=== PATIENT | female | born 1965 ===

== ENCOUNTER 2024-09-24 23:20 | Emergency (ER) | payer OTHER ==
[2024-09-24] MEDS ORDERED: FENTANYL CITR 100 MCG/2 ML ONE (23:34)
--- NOTE | 2024-09-25 00:48 | EDPHYS ---
Physician Documentation [facility] Name: Cintia Lugo Age: 59 yrs Sex: Female : 1965 Arrival Date: 09/24/2024 Time: 23:20 Bed 17 Private MD: ED Physician Ian Ramirez HPI: 09/24 23:30 This 59 yrs old Unknown Female presents to ER via EMS with complaints of Ankle Injury. cp 23:30 The patient presents with an injury, pain, that is acute. The complaints affect the cp left ankle. Onset: The symptoms/episode began/occurred just prior to arrival. 23:30 Context: resulted from misstep while walking on porch, The patient is unable to bear cp weight. The patient is not able to ambulate. 23:30 Associated signs and symptoms: The patient has no apparent associated signs or symptoms.cp Historical: - Allergies: 23:30 Codeine; jb4 - PMHx: 23:30 COLONITIS; Diverticulitis; Hypertension; jb4 - PSHx: 23:30 Cholecystectomy; Hysterectomy; jb4 - Immunization history:: Adult Immunizations up to date. - Infectious Disease History:: Denies. - Social history:: Smoking status: Patient denies any tobacco usage or history of. ROS: 23:35 MS/extremity: Positive for decreased range of motion, deformity, pain, tenderness, of cp the left ankle, Negative for paresthesias, 23:35 Constitutional: Negative for body aches, chills, fever, cp 23:35 Neck: Negative for pain with movement, pain at rest, 23:35 Back: Negative for 23:35 All other systems are negative, Exam: 23:40 Constitutional: The patient appears in no acute distress, alert, awake, well developed, cp well nourished, obese, uncomfortable, 23:40 Head/Face: Normocephalic, atraumatic. cp 23:40 Eyes: Periorbital structures: appear normal, Conjunctiva: normal, no exudate, no injection, Sclera: no appreciated abnormality, Lids and lashes: appear normal, bilaterally, 23:40 ENT: External ear(s): are unremarkable, Nose: is normal, Mouth: Lips: moist, Oral mucosa: moist, Posterior pharynx: Airway: no evidence of obstruction, patent, 23:40 Neck: ROM/movement: is normal, is supple, without pain, no range of motions limitations, 23:40 Chest/axilla: Inspection: normal, 23:40 Cardiovascular: Rate: normal, 23:40 Respiratory: the patient does not display signs of respiratory distress, Respirations: normal, no use of accessory muscles, no retractions, labored breathing, is not present, 23:40 Abdomen/GI: Inspection: abdomen appears normal, 23:40 Back: pain, is absent, 23:40 Musculoskeletal/extremity: Extremities: noted in the left ankle: pain, tenderness lateral side left ankle, ROM: limited passive range of motion due to pain, in the left ankle, Pulses: noted to be 2+ in the left dorsalis pedis artery, the left foot Sensation intact. Vital Signs: 23:28 BP 162 / 78; Pulse 94; Resp 16; Temp 98.7(O); Pulse Ox 97% on R/A; Weight 112.49 kg jb4 (R); Height 5 ft. 8 in. ; Pain 6/10; 09/25 01:00 BP 123 / 53; Pulse 86; Resp 16; Pulse Ox 96% on R/A; jb4 09/24 23:28 Body Mass Index 37.71 (112.49 kg, 172.72 cm) jb4 09/24 23:28 Pain Scale: Adult jb4 MDM: 09/24 23:31 Medical Screening Exam initiated cp 09/25 00:48 Data reviewed: vital signs, nurses notes, radiologic studies, plain films, and as a cp result, I will discharge patient. 00:48 Differential diagnosis: fracture, sprain, dislocation. I considered the following cp discharge prescriptions or medication management in the emergency department Medications were administered in the Emergency Department. See MAR. Independent interpretation of the following test(s) in the Emergency Department X-Ray: My interpretation is images of left ankle show distal fibula fracture. Care significantly affected by the following chronic conditions: Hypertension, Obesity. Counseling: I had a detailed discussion with the patient and/or guardian regarding the historical points, exam findings, and any diagnostic results supporting the discharge/admit diagnosis, radiology results, the need for outpatient follow up, for definitive care, a orthopedic surgeon, to return to the emergency department if symptoms worsen or persist or if there are any questions or concerns that arise at home. Response to treatment: the patient's symptoms have mildly improved after treatment, and as a result, I will discharge patient. 09/24 23:27 Order name: XRAY Ankle LEFT 3 view cp 09/25 00:13 Order name: Splint Leg: Short Leg: posterior with stirrup; Complete Time: :29 cp 09/25 00:13 Order name: Crutches; Complete Time: : cp Administered Medications: 09/24 23:27 CANCELLED (Physician Discretion): fentanyl (pf)25 mcg IM once cp 23:45 Not Given (Duplicate Order): fentanyl (pf)50 mcg IM once jb4 23:46 Drug: fentaNYL (PF) IVP 50 mcg IVP once Route: IVP; Site: right antecubital; jb4 09/25 00:15 Follow up: Response: No adverse reaction; Marked relief of symptoms; Pain is decreased jb4 Disposition: 22:03 Co-signature as Attending Physician, Ian Ramirez MD I agree with the assessment sp4 and plan of care. I reviewed the patient's care provided by the Advanced Practice Provider and agree with the diagnosis and treatment plan. Disposition Summary: 09/25/24 00:48 Discharge Ordered Notes: Location: Home cp Problem: new cp Symptoms: have improved cp Condition: Stable cp Diagnosis - Nondisplaced comminuted fracture of shaft of left fibula, initial encounter for cp closed fracture Followup: cp - With: Ferny Parks MD - When: 2 - 3 days - Reason: Recheck today's complaints Discharge Instructions: - Discharge Summary Sheet cp - Displaced Fibular Ankle Fracture Treated With ORIF cp - Nondisplaced Fibular Ankle Fracture Treated With Immobilization cp Forms: - Medication Reconciliation Form cp - Antibiotic Education cp - Prescription Opioid Use cp - Patient Portal Instructions cp - Leadership Thank You Letter cp Prescriptions: - Ibuprofen 800 mg Oral Tablet - take 1 tablet ORAL route every 8 hours As needed take with food; 30 tablet; cp Refills: 0, Product Selection Permitted - Tramadol 50 mg Oral Tablet - take 1 tablet ORAL route every 8 hours as needed; 12 tablet; Refills: 0, cp Product Selection Permitted Signatures: Dispatcher [employer] EDMS Christiano Molina PA PA cp Bertin Mccann RN RN jb4 Potepalov, Sergey, MD MD sp4 Corrections: (The following items were deleted from the chart) 09/24 23: 23: fentaNYL (PF) IM 25 mcg IM once ordered. cp cp
--- NOTE | 2024-09-25 00:48 | ER ---
Nurse's Notes [facility] [place], [place] Name: Cintia Lugo Age: 59 yrs Sex: Female : 1965 Arrival Date: 09/24/2024 Time: 23:20 Bed 17 Private MD: Diagnosis: Nondisplaced comminuted fracture of shaft of left fibula, initial encounter for closed fracture Presentation: 09/24 23:28 Chief complaint: EMS states: Pt twisted her ankle on the back porch. Denies LOC. jb4 Coronavirus screen: At this time, the client does not indicate any symptoms associated with coronavirus-19. Ebola Screen: No symptoms or risks identified at this time. Initial Sepsis Screen: Does the patient meet any 2 criteria? HR > 90 bpm. Yes Does the patient have a suspected source of infection? No. Patient's initial sepsis screen is negative. Risk Assessment: Do you want to hurt yourself or someone else?. Onset of symptoms was September 24, 2024. Transition of care: patient was not received from another setting of care. 23:28 Method Of Arrival: EMS: [facility] jb4 23:28 Acuity: TELLY 4 jb4 Historical: - Allergies: 23:30 Codeine; jb4 - PMHx: 23:30 COLONITIS; Diverticulitis; Hypertension; jb4 - PSHx: 23:30 Cholecystectomy; Hysterectomy; jb4 - Immunization history:: Adult Immunizations up to date. - Infectious Disease History:: Denies. - Social history:: Smoking status: Patient denies any tobacco usage or history of. Screenin:30 [facility] ED Fall Risk Assessment (Adult) History of falling in the last 3 months, jb4 including since admission Yes- single mechanical fall (1 pt) Confusion or Disorientation No (0 pts) Intoxicated or Sedated No (0 pts) Impaired Gait No (0 pts) Mobility Assist Device Used No (0 pt) Altered Elimination No (0 pt) Score/Fall Risk Level 0 - 2 = Low Risk Oriented to surroundings, Maintained a safe environment. Abuse screen: Denies threats or abuse. Nutritional screening: No deficits noted. Tuberculosis screening: No symptoms or risk factors identified. Assessment: 23:30 General: Appears in no apparent distress. uncomfortable, Behavior is calm, cooperative, jb4 appropriate for age. Pain: Complains of pain in left foot Pain does not radiate. Pain currently is 10 out of 10 on a pain scale. Neuro: Level of Consciousness is awake, alert, obeys commands, Oriented to person, place, time, situation. Cardiovascular: Patient's skin is warm and dry. Pulses are 3+ in left dorsalis pedis artery. Respiratory: Airway is patent Respiratory effort is even, unlabored, Respiratory pattern is regular, symmetrical. Derm: Skin is intact, Skin is pink, warm \T\ dry. Musculoskeletal: Circulation, motion, and sensation intact. Range of motion: limited in left ankle. 09/25 01:30 Reassessment: Patient appears in no apparent distress at this time. Patient and/or jb4 family updated on plan of care and expected duration. Pain level reassessed. Patient is alert, oriented x 3, equal unlabored respirations, skin warm/dry/pink. Splint placed on pt's left lower extremity. Checked by ER provider. Provider Okayed splint and pt discharge. 02:00 Reassessment: Patient appears in no apparent distress at this time. Patient and/or jb4 family updated on plan of care and expected duration. Pain level reassessed. Patient is alert, oriented x 3, equal unlabored respirations, skin warm/dry/pink. Vital Signs: 09/24 23:28 BP 162 / 78; Pulse 94; Resp 16; Temp 98.7(O); Pulse Ox 97% on R/A; Weight 112.49 kg jb4 (R); Height 5 ft. 8 in. ; Pain 6/10; 09/25 01:00 BP 123 / 53; Pulse 86; Resp 16; Pulse Ox 96% on R/A; jb4 09/24 23:28 Body Mass Index 37.71 (112.49 kg, 172.72 cm) jb4 09/24 23:28 Pain Scale: Adult jb4 ED Course: 09/24 23:25 Patient arrived in ED. gm2 23:26 Christiano Molina PA is PHCP. cp 23:26 Ian Ramirez MD is Attending Physician. cp 23:29 Triage completed. jb4 23:30 Arm band placed on right wrist. jb4 09/25 00:10 XRAY Ankle LEFT 3 view In Process Unspecified. EDMS 00:46 Ferny Parks MD is Referral Physician. cp 01:30 No provider procedures requiring assistance completed. IV discontinued, intact, jb4 bleeding controlled, No redness/swelling at site. Pressure dressing applied. Administered Medications: 09/24 23:27 CANCELLED (Physician Discretion): fentanyl (pf)25 mcg IM once cp 23:45 Not Given (Duplicate Order): fentanyl (pf)50 mcg IM once jb4 23:46 Drug: fentaNYL (PF) IVP 50 mcg IVP once Route: IVP; Site: right antecubital; jb4 09/25 00:15 Follow up: Response: No adverse reaction; Marked relief of symptoms; Pain is decreased jb4 Medication: 02:00 VIS not applicable for this client. jb4 Outcome: 00:48 Discharge ordered by MD. cp 01:30 Discharged to home via wheelchair, with family, jb4 01:30 Condition: stable 01:30 Discharge instructions given to patient, Instructed on discharge instructions, follow up and referral plans. no drinking with medication, no driving heavy equipment, medication usage, Demonstrated understanding of instructions, follow-up care, medications, Prescriptions given X 2, 02:00 Patient left the ED. jb4 Signatures: Dispatcher [employer] EDMS Christiano Molina PA PA cp Bryson, James, RN RN jb4 Casandra Ndiaye gm2 Corrections: (The following items were deleted from the chart) 03:54 01:00 General: Appears in no apparent distress. uncomfortable, Behavior is calm, jb4 cooperative, appropriate for age, jb4 03:54 01:00 Pain: Complains of pain in left foot Pain does not radiate. Pain currently is 10 jb4 out of 10 on a pain scale. jb4 : 01:00 Neuro: Level of Consciousness is awake, alert, obeys commands, Oriented to jb4 person, place, time, situation, jb4 :54 01:00 Cardiovascular: Patient's skin is warm and dry. jb4 jb4 03:54 01:00 Respiratory: Airway is patent Respiratory effort is even, unlabored, Respiratory jb4 pattern is regular, symmetrical, jb4 :54 01:00 Derm: Skin is intact, Skin is pink, warm \T\ dry. jb4 jb4 0354 01:00 Musculoskeletal: Circulation, motion, and sensation intact. Range of motion: jb4 limited in left ankle jb4 16:09 09/24 23:30 Cardiovascular: Patient's skin is warm and dry. jb4 jb4
[2024-09-25 02:12] VITALS: BP 162/78; TEMP 98.7; O2SAT 97
--- NOTE | 2024-09-25 06:18 | RAD REPORT ---
EXAM: XR Left Ankle Complete, 3 or More Views CLINICAL HISTORY: The patient is 59 years old and is Female; Pain;Deformity TECHNIQUE: Frontal, lateral and oblique views of the left ankle. COMPARISON: No relevant prior studies available. FINDINGS: BONES/JOINTS: A fracture of the distal fibular metadiaphysis is present. There is no significant displacement. Ankle mortise is congruent. Talar dome is round and smooth. No dislocation. SOFT TISSUES: Lateral ankle soft tissue swelling is present. IMPRESSION: Distal fibular fracture. Electronically signed by: Anne-Marie Gorman MD 09/25/2024 12:24 AM [facility] Due to temporary technical issues with the PACS/Cloud4Wi reporting system, reports are being jeromy d by the in-house radiologist without review as a courtesy to ensure prompt reporting the interpreting radiologist is fully responsible for the content of the report. Transcribed Date/Time: 09/25/2024 6:18 AM
== END 2024-09-25 02:00 | disposition home or self-care (01) ==
LOC: ER 23:20
PROC: 2W3RX1Z Immobilization of Left Lower Leg using Splint (ICD-10-PCS; principal; 2024-09-25)
DX: S82.455A Nondisplaced comminuted fracture of shaft of left fibula, initial encounter for closed fracture (principal)
CPT/HCPCS: 73610; 96374; 99284; 29515; J3010

== ENCOUNTER 2025-01-12 08:05 | Emergency (ER) | payer OTHER ==
[2025-01-12] MEDS ORDERED: HYDROCODONE/APAP 10/325 TAB ONE (08:21)
--- NOTE | 2025-01-12 08:54 | RAD REPORT ---
EXAMINATION: US RIGHT LOWER EXTREMITY VENOUS DOPPLER CLINICAL INDICATION: PAIN RIGHT TECHNIQUE: Complete bilateral duplex sonography of the RIGHT lower extremity veins was performed. The examination included compression for vein patency, color Doppler imaging and flow augmentation in response to distal compression of the distal external iliac, common femoral, femoral, popliteal, tibi al, and great and small saphenous veins. COMPARISON: No prior exam. FINDINGS: Duplex sonography testing of the veins of the RIGHT lower extremity was performed. Color flow imaging shows all veins to be compressible with [id number] color filling. Pulsatile and phasic flow is present within all lower extremity deep and superficial veins examined. IMPRESSION: There is no deep vein or superficial vein thrombosis.
--- NOTE | 2025-01-12 08:55 | RAD REPORT ---
EXAMINATION:Lower Extremity Artery Uni Ltd CLINICAL INDICATION: Female, 59 years old. PAIN RIGHT TECHNIQUE: Arterial duplex ultrasound was performed of the right lower extremity with real-time, colo r-flow, and spectral wave Doppler evaluation. Ankle brachial indices were not performed. COMPARISON: No prior exam. FINDINGS: Mild plaque throughout the evaluated arterial system. Triphasic waveforms are seen throughout the evaluated right lower extremity arterial system, to the l evel of the dorsalis pedis artery. No other suspicious findings. IMPRESSION: No evidence of significant peripheral vascular disease.
[2025-01-12] MEDS ORDERED: BACLOFEN 10 MG TAB PO ONE (09:15)
[2025-01-12] MEDS ORDERED: KETOROLAC 30 MG/ML INJ ONE (10:12)
[2025-01-12] MEDS ORDERED: FENTANYL CITR 100 MCG/2 ML ONE (10:12)
--- NOTE | 2025-01-12 10:16 | ER ---
Nurse's Notes [facility] Name: Cintia Lugo Age: 59 yrs Sex: Female : 1965 Arrival Date: 01/12/2025 Time: 08:05 Bed 8 Private MD: Diagnosis: Pain in right lower leg Presentation: 01/12 08:20 Chief complaint: Patient states: R leg pain x 1 week. No known injury. Coronavirus ss screen: Client denies travel out of the [place] in the last 14 days. Ebola Screen: Patient denies exposure to infectious person. Patient denies travel to an Ebola-affected area in the 21 days before illness onset. Initial Sepsis Screen: Does the patient meet any 2 criteria? No. Patient's initial sepsis screen is negative. Does the patient have a suspected source of infection? No. Patient's initial sepsis screen is negative. Risk Assessment: Do you want to hurt yourself or someone else? Patient reports no desire to harm self or others. Onset of symptoms was January 05, 2025. 08:20 Method Of Arrival: Wheelchair ss 08:20 Acuity: TELLY 3 ss Historical: - Allergies: 08:17 Codeine; ll1 08:18 Oxycodone; ll1 - PMHx: 08:17 COLONITIS; Diverticulitis; Hypertension; ll1 - PSHx: 08:17 Cholecystectomy; hysterectomy; ll1 - Immunization history:: Adult Immunizations. - Infectious Disease History:: Denies. - Social history:: Smoking status: Patient denies any tobacco usage or history of. Screenin:30 [facility] ED Fall Risk Assessment (Adult) History of falling in the last 3 months, ll1 including since admission No falls in past 3 months (0 pts) Confusion or Disorientation No (0 pts) Intoxicated or Sedated No (0 pts) Impaired Gait No (0 pts) Mobility Assist Device Used No (0 pt) Altered Elimination No (0 pt) Score/Fall Risk Level 0 - 2 = Low Risk Maintained a safe environment, Hourly rounding (assess needs \T\ fall precautionary measures) done. Abuse screen: Denies threats or abuse. Nutritional screening: No deficits noted. Tuberculosis screening: No symptoms or risk factors identified. Assessment: 08:30 General: Appears uncomfortable, Behavior is cooperative, appropriate for age, crying. ll1 Pain: Complains of pain in right leg Quality of pain is described as aching, throbbing. Neuro: No deficits noted. Musculoskeletal: Reports pain in right leg. 09:22 Reassessment: No changes from previously documented assessment. Patient and/or family ll1 updated on plan of care and expected duration. Pain level reassessed. Patient is alert, oriented x 3, equal unlabored respirations, skin warm/dry/pink. 10:24 Reassessment: No changes from previously documented assessment. Patient and/or family ll1 updated on plan of care and expected duration. Pain level reassessed. Patient is alert, oriented x 3, equal unlabored respirations, skin warm/dry/pink. 10:34 Reassessment: No changes from previously documented assessment. Patient and/or family ll1 updated on plan of care and expected duration. Pain level reassessed. Patient is alert, oriented x 3, equal unlabored respirations, skin warm/dry/pink. Vital Signs: 08:20 Pulse 97; Resp 16; Temp 97.2(TE); Pulse Ox 96% on R/A; Weight 119.29 kg; Height 5 ft. 8 ss in. ; Pain 10/10; 10:23 BP 192 / 77; Pulse 87; Resp 17; ll1 10:34 BP 185 / 96; Pulse 82; Resp 17; Pulse Ox 97% on R/A; Pain 8/10; ll1 08:20 Body Mass Index 39.99 (119.29 kg, 172.72 cm) ss 08:20 Pain Scale: Adult ss 10:34 Pain Scale: Adult ll1 ED Course: 08:07 Patient arrived in ED. cj3 08:12 Christiano Molina PA is PHCP. cp 08:12 Raimundo Stubbs MD is Attending Physician. cp 08:17 Aurea Driscoll, ITZEL is Primary Nurse. ll1 08:17 Arm band placed on Patient placed in an exam room, on a stretcher. ll1 08:22 Triage completed. ss 08:30 Patient has correct armband on for positive identification. Bed in low position. ll1 Provided Education on: ER procedures and process. Client placed on continuous cardiac and pulse oximetry monitoring. NIBP monitoring applied. 08:48 US Extremity Venous Unilateral Ltd In Process Unspecified. EDMS 08:49 Lower Extremity Artery Uni Ltd US In Process Unspecified. EDMS 10:34 No provider procedures requiring assistance completed. Patient did not have IV access ll1 during this emergency room visit. Administered Medications: 08:29 Drug: HYDROcodone-acetaminophen PO 10 mg-325 mg 1 tabs PO once {Note: RASS 0.} Route: ll1 PO; 10:36 Follow up: Response: No adverse reaction; Pain is unchanged, physician notified ll1 09:22 Drug: Baclofen PO 10 mg PO once {Note: RASS 0.} Route: PO; ll1 10:36 Follow up: Response: No adverse reaction; Pain is unchanged, physician notified ll1 10:17 Drug: Ketorolac IM 30 mg IM once Route: IM; Site: left vastus lateralis; ll1 10:37 Follow up: Response: No adverse reaction; Pain is decreased ll1 10:17 Drug: fentaNYL (PF) IM 50 mcg IM once Route: IM; Site: right vastus lateralis; ll1 10:37 Follow up: Response: No adverse reaction; Pain is decreased; RASS: Alert and Calm (0) ll1 Medication: 08:31 VIS not applicable for this client. ll1 Outcome: 10:15 Discharge ordered by MD. cp 10:34 Discharged to home via wheelchair, ll1 10:34 Condition: stable 10:34 Discharge instructions given to patient, family, Instructed on discharge instructions, follow up and referral plans. no drinking with medication, no driving heavy equipment, medication usage, Demonstrated understanding of instructions, follow-up care, medications, Prescriptions given X 3, 10:37 Patient left the ED. 1 Signatures: Dispatcher [employer] EDMS Love Thomas RN RN ss Page, Corey, PA PA cp Lewis, Lynsay, RN RN ll1 Nuha Mitchell 3
--- NOTE | 2025-01-12 10:16 | EDPHYS ---
Physician Documentation [facility] Name: Cintia Lugo Age: 59 yrs Sex: Female : 1965 Arrival Date: 01/12/2025 Time: 08:05 Bed 8 Private MD: ED Physician Raimundo Stubbs HPI: 01/12 08:25 This 59 yrs old Unknown Female presents to ER via Wheelchair with complaints of Right cp Leg Pain. 08:25 The patient presents with pain, that is acute. The complaints affect the right calf. cp 08:25 Context: resulted from an unknown cause, the patient can fully bear weight, the patient cp is able to ambulate, with moderate difficulty, Problem is a result from a previous injury: No. Onset: The symptoms/episode began/occurred 4 day(s) ago. Associated signs and symptoms: Pertinent negatives low back pain. Treatment prior to arrival includes: prescription medications, Ultram or Ultracet. Historical: - Allergies: 08:17 Codeine; ll1 08:18 Oxycodone; ll1 - PMHx: 08:17 COLONITIS; Diverticulitis; Hypertension; ll1 - PSHx: 08:17 Cholecystectomy; hysterectomy; ll1 - Immunization history:: Adult Immunizations. - Infectious Disease History:: Denies. - Social history:: Smoking status: Patient denies any tobacco usage or history of. ROS: 08:30 MS/extremity: Positive for pain, of the right calf, Negative for injury or acute cp deformity, decreased range of motion, paresthesias, 08:30 Constitutional: Negative for body aches, chills, fever, poor PO intake, cp Vital Signs: 08:20 Pulse 97; Resp 16; Temp 97.2(TE); Pulse Ox 96% on R/A; Weight 119.29 kg; Height 5 ft. 8 ss in. ; Pain 10/10; 10:23 BP 192 / 77; Pulse 87; Resp 17; ll1 10:34 BP 185 / 96; Pulse 82; Resp 17; Pulse Ox 97% on R/A; Pain 8/10; ll1 08:20 Body Mass Index 39.99 (119.29 kg, 172.72 cm) ss 08:20 Pain Scale: Adult ss 10:34 Pain Scale: Adult ll1 MDM: 08:17 Medical Screening Exam initiated cp 01/12 08:24 Order name: US Extremity Venous Unilateral Ltd; Complete Time: 09:00 cp 01/12 09:01 Interpretation: Report reviewed. cp 01/12 08:24 Order name: Lower Extremity Artery Uni Ltd US; Complete Time: 09:00 cp 01/12 09:01 Interpretation: Report reviewed. cp Administered Medications: 08:29 Drug: HYDROcodone-acetaminophen PO 10 mg-325 mg 1 tabs PO once {Note: RASS 0.} Route: ll1 PO; 10:36 Follow up: Response: No adverse reaction; Pain is unchanged, physician notified ll1 09:22 Drug: Baclofen PO 10 mg PO once {Note: RASS 0.} Route: PO; ll1 10:36 Follow up: Response: No adverse reaction; Pain is unchanged, physician notified ll1 10:17 Drug: Ketorolac IM 30 mg IM once Route: IM; Site: left vastus lateralis; ll1 10:37 Follow up: Response: No adverse reaction; Pain is decreased ll1 10:17 Drug: fentaNYL (PF) IM 50 mcg IM once Route: IM; Site: right vastus lateralis; ll1 10:37 Follow up: Response: No adverse reaction; Pain is decreased; RASS: Alert and Calm (0) ll1 Disposition: 10:57 Co-signature as Attending Physician, Raimundo Stubbs MD I reviewed the patient's care rn provided by the Advanced Practice Provider and agree with the diagnosis and treatment plan. Disposition Summary: 01/12/25 10:15 Discharge Ordered Notes: Location: Home cp Problem: new cp Symptoms: have improved cp Condition: Stable cp Diagnosis - Pain in right lower leg cp Followup: cp - With: Private Physician - When: 5 - 6 days - Reason: Recheck today's complaints Discharge Instructions: - Discharge Summary Sheet cp - Musculoskeletal Pain cp - How to Use Cold Therapy cp - Heat Therapy cp Forms: - Medication Reconciliation Form cp - Antibiotic Education cp - Prescription Opioid Use cp - Patient Portal Instructions cp - Leadership Thank You Letter cp Prescriptions: - Celebrex 200 mg Oral Capsule - take 1 capsule ORAL route once daily As needed take with food; 20 capsule; cp Refills: 0, Product Selection Permitted - Neurontin 300 mg Oral Capsule - take 1 capsule ORAL route At bedtime; 20 capsule; Refills: 0, Product Selection cp Permitted - Baclofen 10 mg Oral Tablet - take 1 tablet ORAL route 3 times per day; 20 tablet; Refills: 0, Product cp Selection Permitted Signatures: Dispatcher [employer] EDMS Raimundo Stubbs MD MD rn Page, Corey, PA PA cp Lewis, Lynsay, RN RN ll1 Corrections: (The following items were deleted from the chart) 08:24 08:24 Extremity Venous Uni Ltd+[email or web address] ordered. EDMS EDMS 08:24 08:24 Lower Extremity Artery Uni Ltd+[email or web address] ordered. EDMS EDMS
[2025-01-12 11:02] VITALS: TEMP 97.2
[2025-01-12 11:05] VITALS: BP 185/96; O2SAT 97
== END 2025-01-12 10:37 | disposition home or self-care (01) ==
LOC: ER 08:05
DX: M79.661 Pain in right lower leg (principal)
CPT/HCPCS: 93926; 93971; 96372; 99284; J3010